=== PATIENT | female | born 1990 | race Caucasian/White ===

== ENCOUNTER 2016-11-22 18:23 | Emergency (ER) | payer SELFPAY ==
[~2016-11-22] VITALS: Ht 170.2 cm; Wt 70.4 kg
[~2016-11-22 18:23] MED LIST: ALPR0.5T3 PO; CYCL-36 PO
[2016-11-22] MEDS ORDERED: DEXAMETHASONE SOD PHOS 20 MG/5 ML VIAL IM ONE ×2 (19:45→20:30)
[2016-11-22] MEDS ORDERED: KETOROLAC TROMETHAMINE 60 MG/2 ML (IM) VIAL IM ONE (19:45)
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
[2016-11-22] MEDS ORDERED: KETOROLAC TROMETHAMINE 30 MG/ML (IVP) VIAL IV PUSH ONE (20:30)
--- NOTE | 2016-11-22 20:32 | RADRPT ---
EXAM DATE/TIME: 11/22/2016 19:57 [facility] COMPARISON: MRI LUMBAR SPINE W & W/O CONTRAST, April 25, 2016, 0:35. SPINE LUMBAR COMPLETE W/OBLIQ, September 14, 2 014, 13:18. INDICATIONS : Lower back pain, recent fusion in October of 2016. MEDICAL HISTORY : None. SURGICAL HISTORY : L4 L5 fusion. ENCOUNTER: Initial ACUITY: 2 days PAIN SCORE: 8/10 LOCATION: Right lower back and leg. FINDINGS: Patient has chronic L5 pars defects and with grade 1 unchanged L5/S1 spondylolisthesis. Since the charo or x-ray, patient has undergone fusion procedure with interbody and posterior instrumentation at both L4/L5 and L5/S1. Alignment is unchanged. No bony bridging seen at this point. I don't see an acute f racture or bony destructive process. CONCLUSION: Fusion as above. No evidence of an acute complication. Otoniel Leonard MD on November 22, 2016 at 20:28 Board Certified Radiologist. This report was verified electronically.
[2016-11-22] MEDS ORDERED: HYDR-3533 PO (20:57)
[2016-11-22] MEDS ORDERED: PRED10PA2 PO (20:57)
[2016-11-22 21:38] LABS: AUTOMATED NEUTROPHIL # 7.3 TH/MM3 (1.8-7.7); BASOPHIL # 0.1 TH/MM3 (0-0.2); BASOPHIL % 0.5 % (0.0-2.0); EOSINOPHIL # 0.1 TH/MM3 (0-0.4); EOSINOPHIL % 1.3 % (0.0-4.0); HEMO FLAGS DIFF FINAL; LYMPH % 26.2 % (9.0-44.0); LYMPHOCYTE # 2.9 TH/MM3 (1.0-4.8); MEAN CELL VOLUME 85.4 FL (80.0-100.0); MEAN CORPUSCULAR HEMOGLOBIN 28.7 PG (27.0-34.0); MEAN CORPUSCULAR HGB CONC 33.6 % (32.0-36.0); MONO % 5.2 % (0.0-8.0); NEUT % 66.8 % (16.0-70.0); PLATELET COUNT 398 TH/MM3 (150-450); RED BLOOD COUNT 4.46 MIL/MM3 (4.00-5.30); RED CELL DISTRIBUTION WIDTH 13.2 % (11.6-17.2); WHITE BLOOD COUNT 10.9 TH/MM3 (4.0-11.0)
[2016-11-22 22:02] LABS: BICARBONATE 26.5 MEQ/L (21.0-32.0); POTASSIUM 3.7 MEQ/L (3.5-5.1)
== END 2016-11-22 22:21 | disposition home or self-care (01) ==
LOC: NEPB 18:23
DX: M54.31 Sciatica, right side (principal); F17.210 Nicotine dependence, cigarettes, uncomplicated
CPT/HCPCS: 72110; 80048; 84703; 85025; 96372; 96374; 99283; J1100; J1885